=== PATIENT | female | born 1990 | race Hispanic/Latino ===

== ENCOUNTER 2018-03-18 20:12 | Emergency (ER) | payer OTHER ==
[~2018-03-18] VITALS: Ht 177.8 cm; Wt 106.6 kg
[2018-03-18] MEDS ORDERED: ONDANSETRON HCL INJ 2 MG/ML VIAL IV STA (20:40)
[2018-03-18] MEDS ORDERED: MORPHINE SULFATE 5 MG/ML VIAL IV ONE (20:45)
[2018-03-18] MEDS ORDERED: ACETAMINOPHEN 325 MG TAB PO ONE (23:00)
[2018-03-18 23:16] VITALS: BP 136/71
== END 2018-03-18 23:18 | disposition home or self-care (01) ==
LOC: FSED 20:12
DX: K80.20 Calculus of gallbladder without cholecystitis without obstruction (principal)
CPT/HCPCS: 76705; 80053; 80076; 81003; 81025; 85025; 99284; J2270; J2405

== ENCOUNTER 2018-08-21 15:37 | Emergency (ER) | payer OTHER ==
[~2018-08-21] VITALS: Ht 177.8 cm; Wt 106.6 kg
[2018-08-21] MEDS ORDERED: FLUORESCEIN SOD(OPTH) 1 MG STRP OP ONE (16:30)
[2018-08-21] MEDS ORDERED: TETRACAINE HCL 0.5% OPTH SOLN 4 ML BTL OP ONE (16:30)
--- OUTSIDE RECORDS SUMMARY | 2018-08-24 13:44 | XMS REPORT | CCD ---
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 Name Role Phone Cholo Montalvo CP Allergies, Adverse Reactions, Alerts Substance Reaction Status NKDA Active Medications Medication Instructions Start Date End Date Status ceftriaxone 1 gm, Route: IVPB, Drug form: 03/11/2013 03/11/2013 Completed PDR/INJ, ONCE, Dosing Weight 83.182, kg, Priority: STAT, Start date: 03/11/13 18:40:00, Stop date: 03/11/13 18:40:00 [place] 5/325 oral 1 tab, PO, TID, PRN, 12 tab, for 03/11/2013 Ordered tablet pain, Substitution Allowed, Maintenance, TAB ondansetron 4 mg 4 mg, 1 tab, PO, TID, PRN, Dissolve 03/11/2013 03/14/2013 Ordered oral tablet, tab under tongue, 10 tab, Nausea / disintegrating Vomiting, Substitution Allowed Dissolve tab under tongue acetaminophen 650 mg, Route: PO, Drug form: TAB, 03/11/2013 03/11/2013 Completed ONCE, Dosing Weight 83.182, kg, Priority: STAT, Start date: 03/11/13 20:42:00, Stop date: 03/11/13 20:42:00 Sodium Chloride 0.9% 500 mL, Rate: 500 ml/hr, Infuse 03/11/2013 03/11/2013 Completed (Bolus) IV 500 mL over: 1 hr, Route: IV, kg, Total Volume: 500, Priority: STAT, Start date: 03/11/13 17:37:00, Duration: 1 doses or times, Stop date: 03/11/13 18:36:00, Bolus Dose Bolus Dose Vital Signs Most recent to oldest [Reference Range]: 1 Height 177.8 cm (03/11/2013 15:32:00) Weight 83.182 kg (03/11/2013 15:32:00) Results URINALYSIS Most recent to oldest [Reference Range]: 1 UA Turbidity [Clear] Slight *ABN* (03/11/2013 16:05:00) UA Color [Yellow] Yellow *NA* (03/11/2013 16:05:00) UA pH [5.0-8.0] 6.0 (03/11/2013 16:05:00) UA Spec Grav [<=1.030] 1.015 (03/11/2013 16:05:00) UA Glucose [Negative mg/dL] Negative mg/dL *NA* (03/11/2013 16:05:00) UA Blood [Negative] Negative (03/11/2013 16:05:00) UA Ketones [Negative mg/dL] 80 mg/dL *ABN* (03/11/2013 16:05:00) UA Protein [Negative mg/dL] Negative mg/dL (03/11/2013 16:05:00) UA Urobilinogen [0.1-1.0 mg/dL] 2.0 mg/dL *HI* (03/11/2013 16:05:00) UA Bili [Negative] Negative *NA* (03/11/2013 16:05:00) UA Leuk Est [Negative] Moderate *ABN* (03/11/2013 16:05:00) UA Nitrite [Negative] Positive *ABN* (03/11/2013 16:05:00) UA WBC [0-5 /HPF] 144 /HPF *HI* (03/11/2013 16:05:00) UA RBC [0-2 /HPF] 3 /HPF *HI* (03/11/2013 16:05:00) UA Bacteria [None Seen /HPF] Many /HPF *ABN* (03/11/2013 16:05:00) UA Sq Epi [Few /LPF] Occasional /LPF *NA* (03/11/2013 16:05:00) UA Mucus [None Seen /LPF] Many /LPF *ABN* (03/11/2013 16:05:00) CHEMISTRY Most recent to oldest [Reference Range]: 1 Sodium Lvl [135-145 mEq/L] 139 mEq/L (03/11/2013 17:48:00) Potassium Lvl [3.5-5.1 mEq/L] 3.6 mEq/L (03/11/2013 17:48:00) Chloride Lvl [95-109 mEq/L] 103 mEq/L (03/11/2013:48:00) CO2 [24-32 mEq/L] 26 mEq/L (03/11/2013:48:00) AGAP [10.0-20.0 mEq/L] 13.6 mEq/L (03/11/2013:48:00) Creatinine Lvl [0.5-1.4 mg/dL] 0.6 mg/dL (03/11/2013 17:48:00) eGFR 132 mL/min/1.73m2 1 *NA* (03/11/2013:48:00) BUN [7-22 mg/dL] 3 mg/dL *LOW* (03/11/2013:48:00) B/C Ratio [6-25] 5 *LOW* (03/11/2013:48:00) Glucose Lvl [70-99 mg/dL] 96 mg/dL 2 (03/11/2013:48:00) Total Protein [6.4-8.4 g/dL] 7.4 g/dL (03/11/2013:48:00) Albumin Lvl [3.5-5.0 g/dL] 3.4 g/dL *LOW* (03/11/2013:48:00) Globulin [2.0-4.0 g/dL] 4.0 g/dL (03/11/2013:48:00) A/G Ratio [0.7-1.6] 0.8 (03/11/2013:48:00) Calcium Lvl [8.5-10.5 mg/dL] 8.5 mg/dL (03/11/2013:48:00) ALT [0-65 unit/L] 14 unit/L (03/11/2013:48:00) AST [0-37 unit/L] 9 unit/L (03/11/2013:48:00) Alk Phos [39-136 unit/L] 80 unit/L (03/11/2013:48:00) Bili Total [0.2-1.3 mg/dL] 0.3 mg/dL (03/11/2013 17:48:00) U Preg [Negative] Positive *ABN* (03/11/2013 16:05:00) 1Result Comment: The eGFR is calculated using the CKD-EPI formula. In most young, healthy individuals the eGFR will be >90 mL/min/1.73m2. The eGFR declines with age. An eGFR of 60-89 may be normal in some populations, particularly the elderly, for whom the CKD-EPI formula has not been extensively validated. Use of the eGFR is not recommended in the following populations: Individuals with unstable creatinine concentrations, including patients and those with serious co-morbid conditions. Patients with extremes in muscle mass or diet. The data above are obtained from the National Kidney Disease Education Program ( NKDEP) which additionally recommends that when the eGFR is used in patients with extremes of body mass index for purposes of drug dosing, the eGFR should be mul tiplied by the estimated BMI. 2Interpretive Data: Adult reference range values reflect the clinical guidelines of the [place] Diabetes Association. HEMATOLOGY Most recent to oldest [Reference Range]: 1 WBC [3.7-10.4 K/CMM] 9.1 K/CMM (03/11/2013:48:00) RBC [4.20-5.40 M/CMM] 4.47 M/CMM (03/11/2013:48:00) Hgb [12.0-16.0 g/dL] 13.1 g/dL (03/11/2013:48:00) Hct [36.0-48.0 %] 40.0 % (03/11/2013:48:00) MCV [81.0-99.0 fL] 89.5 fL (03/11/2013:48:00) MCH [27.0-31.0 pg] 29.4 pg (03/11/2013:48:00) MCHC [32.0-36.0 g/dL] 32.8 g/dL (03/11/2013:48:00) RDW [11.5-14.5 %] 13.5 % (03/11/2013:48:00) Platelet [133-450 K/CMM] 208 K/CMM (03/11/2013 17:48:00) MPV [7.4-10.4 fL] 8.4 fL (03/11/2013 17:48:00) Segs [45.0-75.0 %] 87.2 % *HI* (03/11/2013 17:48:00) Lymphocytes [20.0-40.0 %] 8.1 % *LOW* (03/11/2013 17:48:00) Monocytes [2.0-12.0 %] 4.6 % (03/11/2013 17:48:00) Eosinophils [0.0-4.0 %] 0.0 % (03/11/2013 17:48:00) Basophils [0.0-1.0 %] 0.1 % (03/11/2013 17:48:00) Segs-Bands # [1.5-8.1 K/CMM] 8.0 K/CMM (03/11/2013 17:48:00) Lymphocytes # [1.0-5.5 K/CMM] 0.7 K/CMM *LOW* (03/11/2013 17:48:00) Monocytes # [0.0-0.8 K/CMM] 0.4 K/CMM (03/11/2013 17:48:00) Eosinophils # [0.0-0.5 K/CMM] 0.0 K/CMM (03/11/2013 17:48:00) Basophils # [0.0-0.2 K/CMM] 0.0 K/CMM (03/11/2013 17:48:00) Microbiology Reports PROCEDURE:Culture: Urine STATUS: In Progress BODY SITE: COLLECTED DATE/TIME: 03/11/2013 16:05:00 SOURCE: Urine, Clean Catch FREE TEXT SOURCE: PRELIMINARY REPORTS Preliminary Report Holding For Better Growth Preliminary Report >100,000 CFU/mL Escherichia coli , Susceptibility To Follow <10,000 CFU/mL Skin Yoly
--- OUTSIDE RECORDS SUMMARY | 2018-08-24 13:44 | XMS REPORT | Summary of Care ---
Author Author [facility] Organization [facility] Address Unknown Phone Unavailable Encounter HQ Candice(FIN) [id number] Date(s): 12/28/17 - 12/28/17 [facility] [address] [place] [address]- [phone] Encounter Diagnosis Pain in left knee (Final) - 12/31/17 Effusion, left knee (Final) - Discharge Disposition: Home or Self Care Attending Physician: Chema Alcantara DC Referring Physician: Chema Alcantara DC Vital Signs No data available for this section Problem List Condition Effective Dates Status Health Status Informant Body mass index Active (BMI) 40.0-44.9, adult(Confirmed) Allergies, Adverse Reactions, Alerts Substance Reaction Severity Status NKDA Active Medications No data available for this section Results No data available for this section Immunizations No data available for this section Procedures Procedure Date Related Diagnosis Body Site Status Breast augmentation Completed LASIK Completed Social History Social History Type Response Employment/School Status: Unemployed. Work/School description: House . Alcohol Current, Frequency: 1-2 times per month. Smoking Status Never smoker; Exposure to Tobacco Smoke None; Cigarette Smoking Last 365 Days No; Reg Smoking Cessation Counseling No entered on: 12/23/17 Assessment and Plan No data available for this section
--- OUTSIDE RECORDS SUMMARY | 2018-08-24 13:44 | XMS REPORT | Continuity of Care Document ---
Author Author [facility] Interface Address Unknown Phone Unavailable Problems Problem Status Onset Date Classification Date Reported Comments Source Pain in left knee 01/01/2018 04/05/2018 [facility] M25.562 PAIN IN LEFT KNEE Active 12/23/2017 [facility] BACK PAIN/4 MONTHS /BLADDER INFE Active 03/11/2013 [facility] Gallbladder sludge Active Problem 05/14/2018 [facility] Body mass index 40.0-44.9, adult(<span [id number]">Confirmed</span>) Active Problem 05/14/2018 [facility] Effusion, left knee 04/05/2018 [facility] Medications Medication Details Route Status Patient Instructions Ordering Provider Order Date Source amoxicillin 500 mg oral tablet 500 mg=1 tab, PO, BID, X 10 day, # 20 tab, 0 Refill(s), Pharmacy: [facility] [id number] Active 05/10/2018 [facility] Fluticasone propionate 0.05 MG/ACTUAT Metered Dose Nasal [place] 1 spray, NASAL, Daily, # 1 ea, 2 Refill(s), [facility] [id number] Active 05/03/2018 [facility] meclizine 25 mg oral tablet 25 mg=1 tab, PO, TID, PRN for dizziness, X 20 day, # 60 tab, 0 Refill(s), [facility] [id number] Active 05/03/2018 [facility] naproxen 500 mg oral tablet 500 mg=1 tab, PO, BID, with food, X 14 day, # 30 tab, 2 Refill(s), Pharmacy: [facility] [id number] No Longer Active 12/23/2017 [facility] [place] 5/325 oral tablet 1 tab, PO, TID, PRN, 12 tab, for pain, Substitution Allowed, Maintenance, TAB PO Active [place] 03/12/2013 [facility] ondansetron 4 mg oral tablet, disintegrating 4 mg, 1 tab, PO, TID, PRN, Dissolve tab under tongue, 10 tab, Nausea / Vomiting, Substitution AllowedDissolve tab under tongue PO Active [facility] 03/12/2013 [facility] acetaminophen 650 mg, Route: PO, Drug form: TAB, ONCE, Dosing Weight 83.182, kg, Priority: STAT, Start date: 03/11/13 20:42:00, Stop date: 03/11/13 20:42:00 PO No Longer Active [facility] 03/12/2013 [facility] ceftriaxone 1 gm, Route: IVPB, Drug form: PDR/INJ, ONCE, Dosing Weight 83.182, kg, Priority: STAT, Start date: 03/11/13 18:40:00, Stop date: 03/11/13 18:40:00 IVPB No Longer Active [facility] 03/11/2013 [facility] Sodium Chloride 0.9% (Bolus) IV 500 mL 500 mL, Rate: 500 ml/hr, Infuse over: 1 hr, Route: IV, kg, Total Volume: 500, Priority: STAT, Start date: 03/11/13 17:37:00, Duration: 1 doses or times, Stop date: 03/11/13 18:36:00, Bolus DoseBolus Dose IV No Longer Active [facility] 03/11/2013 [facility] Allergies, Adverse Reactions, Alerts Substance Category Reaction Severity Reaction type Status Date Reported Comments Source Immunizations Immunization Date Given Site Status Last Updated Comments Source Results Order Name Results Value Reference Range Date Interpretation Comments Source Knee wo contrast MRI Knee wo contrast MRI EXAM: Left knee wo contrast MRI INDICATION: - M25.562 LT KNEE PAIN COMPARISON: None. TECHNIQUE: Multiplanar, multisequence magnetic resonance imaging of the left knee was performed without the administration of intravenous gadolinium contrast. FINDINGS: Intercondylar notch: Anterior cruciate ligament and posterior cruciate ligament are intact. Medial compartment: No meniscal tear or chondral defect is seen. Medial collateral ligament is intact. Lateral compartment: No meniscal tear or chondral defect is seen. Lateral collateral ligament complex is intact. Posterolateral corner structures are intact. Patellofemoral compartment: There is mild heterogeneity of the hyaline cartilage along the patellar apex without focal chondral defect. Medial plica is noted. Medial and lateral patellofemoral retinaculum are intact. Extensor mechanism: Quadriceps and patellar tendons are intact. Other findings: Small joint effusion is seen. No acute bony fracture or stress- related marrow edema is noted. IMPRESSION: 1. No acute bony abnormality of the left knee. 2. No meniscal, cruciate ligament, or collateral ligament tear. 3. Small knee joint effusion. SL: [id number] 12/28/2017 - - Read by: Ruslan Mcghee MD Dictated Date/time: 12/29/17 08:13 Electronically Signed by: Ruslan Mcghee MD 12/29/17 08:18 FINAL REPORT [facility] CHEMISTRY Globulin 4.0 g/dL 2.0 - 4.0 03/11/2013 Normal [facility] CHEMISTRY B/C Ratio 5 6 - 25 03/11/2013 LOW [facility] CHEMISTRY A/G Ratio 0.8 0.7 - 1.6 03/11/2013 Normal [facility] CHEMISTRY AGAP 13.6 meq/L 10.0 - 20.0 03/11/2013 Normal [facility] CHEMISTRY Sodium Lvl 139 meq/L 135 - 145 03/11/2013 Normal [facility] CHEMISTRY Potassium Lvl 3.6 meq/L 3.5 - 5.1 03/11/2013 Normal [facility] CHEMISTRY Chloride Lvl 103 meq/L 95 - 109 03/11/2013 Normal [facility] CHEMISTRY eGFR 132 mL/min/1.73m2 03/11/2013 NA 1Result Comment: The eGFR is calculated using [...] from the National Kidney Disease Education Program (NKDEP) which additionally recommends that when the eGFR is used in patients with extremes of body mass index for purposes of drug dosing, the eGFR should be multiplied by the estimated BMI. [facility] CHEMISTRY AST 9 unit/L 0 - 37 03/11/2013 Normal [facility] CHEMISTRY BUN 3 mg/dL 7 - 22 03/11/2013 LOW [facility] CHEMISTRY Bili Total 0.3 mg/dL 0.2 - 1.3 03/11/2013 Normal [facility] CHEMISTRY ALT 14 unit/L 0 - 65 03/11/2013 Normal [facility] CHEMISTRY Creatinine Lvl 0.6 mg/dL 0.5 - 1.4 03/11/2013 Normal [facility] CHEMISTRY CO2 26 meq/L 24 - 32 03/11/2013 Normal [facility] CHEMISTRY Glucose Lvl 96 mg/dL 70 - 99 03/11/2013 Normal 2Interpretive Data: Adult reference range values reflect the clinical guidelines of the Citizen [place] Diabetes Association. [facility] CHEMISTRY Albumin Lvl 3.4 g/dL 3.5 - 5.0 03/11/2013 LOW [facility] CHEMISTRY Calcium Lvl 8.5 mg/dL 8.5 - 10.5 03/11/2013 Normal [facility] CHEMISTRY Alk Phos 80 unit/L 39 - 136 03/11/2013 Normal [facility] CHEMISTRY Total Protein 7.4 g/dL 6.4 - 8.4 03/11/2013 Normal [facility] HEMATOLOGY Platelet 208 K/CMM 133 - 450 03/11/2013 Normal [facility] HEMATOLOGY MPV 8.4 fL 7.4 - 10.4 03/11/2013 Normal [facility] HEMATOLOGY MCHC 32.8 g/dL 32.0 - 36.0 03/11/2013 Normal [facility] HEMATOLOGY RDW 13.5 % 11.5 - 14.5 03/11/2013 Normal [facility] HEMATOLOGY MCH 29.4 pg 27.0 - 31.0 03/11/2013 Normal [facility] HEMATOLOGY Hct 40.0 % 36.0 - 48.0 03/11/2013 Normal [facility] HEMATOLOGY MCV 89.5 fL 81.0 - 99.0 03/11/2013 Normal [facility] HEMATOLOGY Hgb 13.1 g/dL 12.0 - 16.0 03/11/2013 Normal [facility] HEMATOLOGY RBC 4.47 M/CMM 4.20 - 5.40 03/11/2013 Normal [facility] HEMATOLOGY WBC 9.1 K/CMM 3.7 - 10.4 03/11/2013 Normal [facility] HEMATOLOGY Basophils # 0.0 K/CMM 0.0 - 0.2 03/11/2013 Normal [facility] HEMATOLOGY Monocytes # 0.4 K/CMM 0.0 - 0.8 03/11/2013 Normal [facility] HEMATOLOGY Eosinophils # 0.0 K/CMM 0.0 - 0.5 03/11/2013 Normal [facility] HEMATOLOGY Segs-Bands # 8.0 K/CMM 1.5 - 8.1 03/11/2013 Normal [facility] HEMATOLOGY Lymphocytes # 0.7 K/CMM 1.0 - 5.5 03/11/2013 LOW [facility] HEMATOLOGY Basophils 0.1 % 0.0 - 1.0 03/11/2013 Normal [facility] HEMATOLOGY Eosinophils 0.0 % 0.0 - 4.0 03/11/2013 Normal [facility] HEMATOLOGY Lymphocytes 8.1 % 20.0 - 40.0 03/11/2013 LOW [facility] HEMATOLOGY Monocytes 4.6 % 2.0 - 12.0 03/11/2013 Normal [facility] HEMATOLOGY Segs 87.2 % 45.0 - 75.0 03/11/2013 [facility] CHEMISTRY U Preg Positive *ABN* (03/11/2013 16:05:00) Negative 03/11/2013 ABN [facility] URINALYSIS UA Bacteria Many /HPF *ABN* (03/11/2013 16:05:00) None Seen 03/11/2013 [facility] URINALYSIS UA Mucus Many /LPF *ABN* (03/11/2013 16:05:00) None Seen 03/11/2013 ABN [facility] URINALYSIS UA Leuk Est Moderate *ABN* (03/11/2013 16:05:00) Negative 03/11/2013 [facility] URINALYSIS UA Glucose Negative mg/dL *NA* (03/11/2013 16:05:00) Negative 03/11/2013 [facility] URINALYSIS UA RBC 3 /HPF 0 - 2 03/11/2013 [facility] URINALYSIS UA WBC 144 /HPF 0 - 5 03/11/2013 [facility] URINALYSIS UA Sq Epi Occasional /LPF *NA* (03/11/2013 16:05:00) Few 03/11/2013 [facility] URINALYSIS UA Nitrite Positive *ABN* (03/11/2013 16:05:00) Negative 03/11/2013 [facility] URINALYSIS UA Blood Negative (03/11/2013 16:05:00) Negative 03/11/2013 [facility] URINALYSIS UA Bili Negative *NA* (03/11/2013 16:05:00) Negative 03/11/2013 [facility] URINALYSIS UA Ketones 80 mg/dL *ABN* (03/11/2013 16:05:00) Negative 03/11/2013 ABN [facility] URINALYSIS UA Urobilinogen 2.0 mg/dL 0.1 - 1.0 03/11/2013 [place] [facility] URINALYSIS UA pH 6.0 5.0 - 8.0 03/11/2013 Normal [facility] URINALYSIS UA Protein Negative mg/dL (03/11/2013 16:05:00) Negative 03/11/2013 Normal [facility] URINALYSIS UA Spec Grav 1.015 <=1.030 03/11/2013 Normal [facility] URINALYSIS UA Turbidity Slight *ABN* (03/11/2013 16:05:00) Clear 03/11/2013 ABN [facility] URINALYSIS UA Color Yellow *NA* (03/11/2013 16:05:00) Yellow 03/11/2013 NA [facility] Microbiology Culture: Urine 03/11/2013 [facility] Vital Signs Vital Sign Value Date Comments Source Height 177.8 cm 05/03/2018 [facility] Weight 105.455 05/03/2018 [facility] BMI Calculated 33.36 05/03/2018 [facility] Heart Rate 66 05/03/2018 [facility] Respitory Rate 15 05/03/2018 [facility] Temperature Oral (F) 98.3 F 05/03/2018 [facility] Systolic (mm Hg) 123 05/03/2018 [facility] Diastolic (mm Hg) 74 05/03/2018 [facility] Height 152.4 cm 12/23/2017 [facility] Weight 103.182 12/23/2017 [facility] BMI Calculated 44.43 12/23/2017 [facility] Systolic (mm Hg) 126 12/23/2017 [facility] Diastolic (mm Hg) 79 12/23/2017 [facility] Heart Rate 56 12/23/2017 [facility] Temperature Oral (F) 97.7 F 12/23/2017 [facility] Respitory Rate 14 12/23/2017 [facility] Weight 83.182 03/11/2013 [facility] Height 177.8 cm 03/11/2013 [facility] Encounters Location Location Details Encounter Type Encounter Number Reason For Visit Attending Provider ADM Date DC Date Status Source [facility] Emergency [id number] COREY RADFORD 03/11/2013 03/11/2013 Active [facility] Outpatient [id number] JOSR BANGURA 12/23/2017 Active [facility] Primary Care [facility] Outpatient [id number] Josr Bangura 12/23/2017 12/24/2017 Medical Group [facility] Outpatient [id number] Chema Alcantara 12/29/2017 12/29/2017 [facility] Outpatient [id number] JOSR BANGURA 05/03/2018 Active [facility] Primary [facility] Outpatient [id number] Josr Bangura 05/03/2018 05/04/2018 Medical Group [facility] Primary [facility] Phone Message [id number] 05/10/2018 05/12/2018 [facility] Procedures Procedure Code Date Perfomer Comments Source Breast augmentation [id number] [facility] LASIK [id number] [facility] Breast augmentation [id number] [facility] LASIK [id number] [facility]
--- OUTSIDE RECORDS SUMMARY | 2018-08-24 13:44 | XMS REPORT | Summary of Care ---
Author Author [facility] Organization [facility] Address Unknown Phone Unavailable Encounter CARLA Harvey(FIN) [id number] Date(s): 12/23/17 - 12/23/17 [facility] [address], [address] [place] [address]- [phone] Discharge Disposition: Home or Self Care Attending Physician: Jessi Jamil DO Vital Signs Most recent to 1 oldest [Reference Range]: Height 152.4 cm (12/23/17 10:12 AM) Temperature Oral 97.7 DegF [96.4-99.1 DegF] (12/23/17 10:12 AM) Blood Pressure 126/79 mmHg [90-140/60-90 mmHg] (12/23/17 10:12 AM) Respiratory Rate 14 BRMIN [14-20 BRMIN] (12/23/17 10:12 AM) Peripheral Pulse 56 bpm Rate [60-100 bpm] *LOW* (12/23/17 10:12 AM) Weight 103.182 kg (12/23/17 10:12 AM) Body Mass Index 44.43 m2 (12/23/17 10:12 AM) Problem List Condition Effective Dates Status Health Status Informant Body mass index Active (BMI) 40.0-44.9, adult(Confirmed) Allergies, Adverse Reactions, Alerts Substance Reaction Severity Status NKDA Active Medications naproxen 500 mg oral tablet 500 mg=1 tab, PO, BID, with food, X 14 day, # 30 tab, 2 Refill(s), Pharmacy: [facility] [id number] Start Date: 12/23/17 Stop Date: 02/03/18 Status: Completed Results No data available for this section [...]
--- OUTSIDE RECORDS SUMMARY | 2018-08-24 13:45 | XMS REPORT | Summary of Care ---
Author Author [facility] Organization [facility] Address Unknown Phone Unavailable Encounter HQ Juan Antoniontr_travon(FIN) [id number] Date(s): 05/10/18 - 05/11/18 [facility] [address], [address] [place] [address] [phone] Vital Signs No data available for this section Problem List Condition Effective Dates Status Health Status Informant Gallbladder Active sludge(Confirmed) Body mass index Active (BMI) 40.0-44.9, adult(Confirmed) Allergies, Adverse Reactions, Alerts Substance Reaction Severity Status NKDA Active Medications amoxicillin 500 mg oral tablet 500 mg=1 tab, PO, BID, X 10 day, # 20 tab, 0 Refill(s), Pharmacy: [facility] [id number] Start Date: 05/10/18 Stop Date: 05/20/18 Status: Ordered Results No data available for this section [...] Reg Smoking Cessation Counseling No entered on: 05/03/18 Assessment and Plan No data available for this section
--- OUTSIDE RECORDS SUMMARY | 2018-08-24 13:45 | XMS REPORT | Summary of Care ---
Author Author [facility] Organization [facility] Address Unknown Phone Unavailable Encounter CARLA Harvey(FIN) [id number] Date(s): 05/03/18 - 05/03/18 [facility] [address], [address] [place] [address]- [phone] Discharge Disposition: Home or Self Care Attending Physician: Jessi Jamil DO Vital Signs Most recent to 1 oldest [Reference Range]: Height 177.8 cm (05/03/18 4:14 PM) Temperature Oral 98.3 DegF [96.4-99.1 DegF] (05/03/18 4:14 PM) Blood Pressure 123/74 mmHg [90-140/60-90 mmHg] (05/03/18 4:14 PM) Respiratory Rate 15 BRMIN [14-20 BRMIN] (05/03/18 4:14 PM) Peripheral Pulse 66 bpm Rate [60-100 bpm] (05/03/18 4:14 PM) Weight 105.455 kg (05/03/18 4:14 PM) Body Mass Index 33.36 m2 (05/03/18 4:14 PM) Problem List Condition Effective Dates Status Health Status Informant Gallbladder Active sludge(Confirmed) Body mass index Active (BMI) 40.0-44.9, adult(Confirmed) Allergies, Adverse Reactions, Alerts Substance Reaction Severity Status NKDA Active Medications fluticasone nasal 0.05 mg/inh spray 1 spray, NASAL, Daily, # 1 ea, 2 Refill(s), Pharmacy: [facility] [id number] Start Date: 05/03/18 Stop Date: 08/01/18 Status: Ordered meclizine 25 mg oral tablet 25 mg=1 tab, PO, TID, PRN for dizziness, X 20 day, # 60 tab, 0 Refill(s), [facility]: [facility] [id number] Start Date: 05/03/18 Stop Date: 05/23/18 Status: Ordered Results No data available for [...]
== END 2018-08-21 17:31 | disposition home or self-care (01) ==
LOC: FSED 15:37
DX: T15.02XA Foreign body in cornea, left eye, initial encounter (principal); S05.8X2A Other injuries of left eye and orbit, initial encounter
CPT/HCPCS: 99283